=== PATIENT | female | born 1990 | race Caucasian/White ===

== ENCOUNTER 2020-09-02 11:52 | Outpatient (REF) | payer OTHER, MEDICAID, SELFPAY | END 2020-09-02 11:53 | disposition home or self-care (01) | LOC: HO.LAB 11:52 | PROVIDERS: Visit Provider Internal Medicine | DX: Z20.828 Contact with and (suspected) exposure to other viral communicable diseases (principal) | CPT/HCPCS: C9803; U0003 ==

== ENCOUNTER 2020-10-12 10:43 | Emergency (ER) | payer OTHER, SELFPAY ==
[2020-10-12 11:46] VITALS: BP 115/69; PULSE 105; RESP 20; TEMP 37.5; O2SAT 99; BMI 29.2
--- NOTE | 2020-10-12 11:52 | XR_ITS ---
EXAMINATION: XR CHEST CLINICAL INFORMATION: Cough and fever COMPARISON: None TECHNIQUE: Frontal view of the chest was obtained. FINDINGS: No significant abnormality is noted involving the heart, lungs, mediastinum, bony thorax or soft tissues. XR/XR chest 1V IMPRESSION: Unremarkable chest examination.
--- NOTE | 2020-10-12 12:01 | ED.URI ---
HPI - URI/Sore Throat General Chief Complaint: Upper Respiratory Symptoms Stated Complaint: fever Time Seen by Provider: 10/12/20 11:51 Source: patient Mode of arrival: ambulatory History of Present Illness HPI Narrative: 30-year-old female with no significant past medical history presenting to the ED complaining of subjective fever, chills, dry cough, headache, myalgias, generalized fatigue/weakness times a few days. Denies chest pain, shortness of breath, difficulty swallowing, abdominal pain, nausea/vomiting, LE edema, recent travel MD elicited complaint: fever and cough Related Data Previous Rx's Medication Instructions Recorded acetaminophen [Tylenol Extra 500 mg PO Q6H PRN #20 tab 10/12/20 Strength] amoxicillin-pot clavulanate 1 tab PO Q12H 7 Days #14 tab 10/12/20 [Augmentin] fluticasone propionate [Flonase 2 spray INTRANASAL DAILY #16 g 10/12/20 Allergy Relief] Allergies Allergy/AdvReac Type Severity Reaction Status Date / Time No Known Allergies Allergy Verified 10/12/20 11:50 Review of Systems Review of Systems: Constitutional: No Weight loss, +Subj Fever, + Chills ENT/Mouth: No Ear Pain, + Nasal Congestion, No Sinus Pain, No Hoarseness, + sore throat, No Rhinorrhea, No Swallowing Difficulty Cardiovascular: No Chest Pain, No SOB Respiratory: + Cough, No Wheezing Gastrointestinal: No Nausea, No Vomiting, No Diarrhea, No Abdominal pain Genitourinary: No Dysuria, No Hematuria Musculoskeletal: No joint pain, +Myalgias, No Joint Swelling Skin: No Skin Lesions, No rash Neuro: No Weakness, No Numbness, No Paresthesias Yes all other systems are reviewed and are negative [facility] Past Medical History Attestation statement: The following information was validated with the patient. Medical History (Updated 10/12/20 @ 14:02 by PHYLICIA Bryant) No known health problems Social History Social History Advance Directives: No Advance Directives Information Provided: No Physical Exam Vital Signs: Vital Signs: Last Vital Signs Temp 99.5 F 10/12/20 11:46 Pulse 105 H 10/12/20 11:46 Resp 20 10/12/20 11:46 BP 115/69 10/12/20 11:46 Pulse Ox 99 10/12/20 11:46 Body Mass Index 29.2 Const: General: cooperative, healthy appearing and no acute distress Orientation/consciousness: patient oriented x3 Limitations: no limitations HENMT: Head: Yes normal to inspection Ears: hearing grossly normal bilaterally General nose exam: Normal external nose present Face and sinus: Yes normal facial exam Mouth: Normal oral and palatal mucosa present Throat: Yes uvula midline, Yes abnormal tonsil (Erythema and faint exudates), No peritonsillar mass and No uvular edema Eyes: General: appearance normal, both eyes and all related structures EOM: EOMs intact bilaterally Neck: Neck: Yes normal visual inspection, Yes no lymphadenopathy and Yes no meningeal signs Resp: Effort & Inspection: normal respiratory effort Auscultation: clear to auscultation bilaterally, no rales, no rhonchi and no wheezes Cardio: Rate: regular rate Heart sounds: S1 normal heart sound present and S2 normal heart sound present GI: Inspection: Yes normal to inspection Palpation (GI): Soft to palpation, nontender, no guarding and not rigid Skin: Rashes: no rashes Wounds: no wounds Neuro: General: patient oriented x3 and no meningeal signs Gait exam (Neuro): Normal gait present Extrem: Other: No LE edema General: Yes normal to inspection Course Course Course Narrative: CXR, COVID-19/influenza/RSV testing negative. With shared decision making will DC patient with Augmentin for strep pharyngitis MDM - URI/Sore Throat MDM Narrative Medical decision making narrative: 30-year-old female with no significant past medical history presenting to the ED complaining of subjective fever, chills, dry cough, headache, myalgias, generalized fatigue/weakness times a few days. On exam low-grade temp 99.5?, tachycardic likely from fever, NAD/nontoxic, lungs CTA, physical exam concerning for early strep pharyngitis vs Concern for viral syndrome/COVID-19. Rule out pneumonia. Plan: COVID-19/influenza/RSV, CXR, rapid strep Lab Data Labs: Lab Results 10/12/20 Range/Units 12:14 Coronavirus (PCR) NEGATIVE (Negative) Influenza Type A (PCR) NEGATIVE (Negative) Influenza Type B (PCR) NEGATIVE (Negative) RSV RNA Qual (PCR) NEGATIVE (Negative) Discharge Plan Discharge Clinical Impression: Upper respiratory infection, Pharyngitis Patient Disposition: Home, Self-Care Instructions: Viral Syndrome (ED) Additional Instructions: Your COVID-19/influenza/RSV was negative. Her chest x-ray was unremarkable. Flonase will help with nasal decongestion. Augmentin is an antibiotic, take as prescribed for strep pharyngitis. In addition take Tylenol Motrin at home for body aches/fever. Rest. Stay hydrated. Call your doctor for follow-up. You should continue to stay self isolated until you feel better, and consider getting retested if her symptoms persist Hicks COVID-19 / influenza / RSV fue negativo. Hicks radiograf?a de t?rax no tuvo nada especial. Flonase ayudar? con la descongesti?n nasal. Augmentin es un antibi?nadeem, kary seg?n lo prescrito para la faringitis estreptoc?cica. Adem?s, tome Tylenol Motrin en casa para los unique corporales / fiebre. [place]. Mantente hidratado. Llame a hicks m?dico para seguimiento. Debe continuar aislado hasta que se sienta mejor y considerar volver a hacerse la prueba si los s?ntomas persisten. Prescriptions: New amoxicillin-pot clavulanate [Augmentin] 875-125 mg tablet 1 tab PO Q12H 7 Days Qty: 14 RF: 0 acetaminophen [Tylenol Extra Strength] 500 mg tablet 500 mg PO Q6H PRN (Reason: pain or fever) Qty: 20 RF: 0 fluticasone propionate [Flonase Allergy Relief] 50 mcg/actuation spray,suspension 2 spray intranasal DAILY Qty: 16 RF: 0 Referrals: Physician,Unknown [Primary Care Provider] - 2 days Stand Alone Forms: Work/School Release
[2020-10-12] MEDS: Acetaminophen 325 MG TABLET 650 MG PO (12:21)
[2020-10-12 13:25] LABS: Influenza A PCR NEGATIVE (Negative); Influenza B PCR NEGATIVE (Negative); Resp Syncy Virus RNA Qual PCR NEGATIVE (Negative); SARS COV2 PCR INHOUSE NEGATIVE (Negative)
== END 2020-10-12 14:14 | disposition home or self-care (01) ==
PROVIDERS: Physician Assistant; Emergency Provider Emergency Medicine
DX: J06.9 Acute upper respiratory infection, unspecified (principal); J02.9 Acute pharyngitis, unspecified; Z20.822 Contact with and (suspected) exposure to COVID-19
CPT/HCPCS: 0241U; 36415; 71045; 99283

== ENCOUNTER 2021-09-13 15:37 | Inpatient (IN) | payer OTHER, SELFPAY ==
--- NOTE | ~2021-09-13 | US_ITS ---
EXAMINATION: US PELVIS CLINICAL INFORMATION: Right lower quadrant pain. Abdominal plasty 4 months ago. Age 31. LMP 09/07/2021. COMPARISON: CT abdomen and pelvis with contrast 09/14/2021. TECHNIQUE: Ultrasound of the pelvis is performed using both transabdominal and transvaginal transducers along with Doppler. Transvaginal imaging is performed due to inadequate visualization transabdominally. FINDINGS: Uterus: The uterus is anteverted and measures 8.5 x 4.1 x 5.4 cm. The double wall endometrial thickness is normal at 4 mm. The uterus is smooth in contour and has normal myometrial echogenicity. No myometrial cyst. There is question of exophytic fibroid from anterior right fundus approximately 4 x 3 x 2 cm in size. There is a knuckle of bowel at this site on CT. However, no peristalsis is demonstrated to confirm bowel on ultrasound. Adnexa: Both ovaries are visualized. There is normal color flow to the adnexa. There is no ovarian torsion. There is no pelvic ascites or fluid collection. Right ovary measures 4.4 x 2.6 x 2.8 cm. Volume 17 mL. Left ovary measures 4.0 x 2.4 x 3.3 cm. Volume 17 mL. Other: There is a complicated spindle-shaped predominantly cystic lesion overlying the midline anterior abdominal wall in the deep subcutaneous space corresponding to the cystic area on CT. This measures approximately 1.3 cm in thickness by 5.6 x 6.3 cm. There is no associated color flow. Finding most likely represents postoperative seroma. US/US pelvic and transvaginal IMPRESSION: 1. No adnexal mass or ascites. No torsion. 2. Question of right uterine fundal exophytic fibroid 4 x 3 x 2 cm versus artifact from adjacent bowel (no peristalsis seen on ultrasound). 3. Probable complicated seroma the subcutaneous space midline measuring 1.3 x 5.6 x 6.3 cm. No associated color flow.
--- NOTE | ~2021-09-13 | CT_ITS ---
EXAMINATION: CT ABDOMEN AND PELVIS WITH CONTRAST CLINICAL INFORMATION: Right lower quadrant pain COMPARISON: None TECHNIQUE: Multidetector volumetric images were obtained from the superior aspect of the liver through the pubic symphysis following administration 85 mL of Omnipaque 350 intravenous contrast. Sagittal and coronal reformatted images were obtained on the technologist's workstation. Oral contrast: No This CT examination was performed using dose optimization techniques as appropriate, variously including the following: *Automated exposure control *Adjustment of mA and/or kV according to patient size (this includes techniques or standardized protocols for targeted exams where dose is matched to indication/reason for exam; i.e. extremities or head) *Use of iterative reconstruction technique DLP: 548 mGy-cm FINDINGS: LUNG BASES: The visualized lung bases are unremarkable. Bilateral breast implants are noted. LIVER, GALLBLADDER, AND BILIARY TREE: The liver is normal in size, shape, and attenuation. No focal hepatic lesion or biliary ductal dilatation is present. The gallbladder is unremarkable with no evidence of radiopaque gallstones, gallbladder wall thickening, or obvious pericholecystic inflammatory changes. PANCREAS: Unremarkable. SPLEEN: Unremarkable. ADRENAL GLANDS: Unremarkable. KIDNEYS AND URETERS: The kidneys are normal in size, shape, and attenuation. No hydronephrosis, hydroureter, or calculi seen. No perinephric stranding. BLADDER: Unremarkable. GASTROINTESTINAL TRACT: No evidence of bowel obstruction or significant wall thickening. The appendix is unremarkable. No free fluid or free air is seen. ABDOMINAL WALL: There is a mildly complex fluid collection in the subcutaneous tissues of the lower anterior abdominal wall along the midline measuring 3.3 x 1.0 x 3.5 cm with peripheral enhancement. LYMPH NODES: Normal. VASCULAR: Unremarkable. PELVIC VISCERA: Unremarkable. OSSEOUS STRUCTURES: Unremarkable. CT/CT abdomen pelvis w con IMPRESSION: Peripherally enhancing collection in the lower anterior abdominal wall subcutaneous tissues measuring up to 3.5 cm, which could represent an abscess in the proper clinical setting. No additional acute findings identified within the abdomen/pelvis. Fleischner guidelines were followed.
[2021-09-13 16:04] VITALS: BP 109/68; PULSE 103; RESP 16; TEMP 37.3; O2SAT 99; BMI 26.5
[2021-09-13 23:04] VITALS: BP 118/80; PULSE 95; RESP 18; TEMP 36.9; O2SAT 100
--- NOTE | 2021-09-13 23:12 | ED.ABDPAIN ---
HPI - Abdominal Pain General Chief Complaint: Abdominal Pain Stated Complaint: abd pain Time Seen by Provider: 09/13/21 23:03 Source: patient and slumber room attendant Mode of arrival: ambulatory History of Present Illness HPI narrative: 31-year-old female without significant past medical history other than a recent abdominal plasty 4 months ago that was completed in [place]. Patient now presents with right lower quadrant pain that started last night and has worsened in nature and is described as sharp and extends across into the suprapubic area with associated subjective fevers and chills but denies any nausea, vomiting, diarrhea and denies any urinary pain/burning/frequency. Patient states LMP was 09/05. Related Data Previous Rx's Medication Instructions Recorded acetaminophen 500 mg tablet 500 mg PO Q6H PRN #20 tab 10/12/20 (Tylenol Extra Strength) amoxicillin 875 mg-potassium 1 tab PO Q12H 7 Days #14 tab 10/12/20 clavulanate 125 mg tablet (Augmentin) fluticasone propionate 50 2 spray INTRANASAL DAILY #16 g 10/12/20 mcg/actuation nasal spray,suspension (Flonase Allergy Relief) Allergies Allergy/AdvReac Type Severity Reaction Status Date / Time No Known Allergies Allergy Verified 10/12/20 11:50 Review of Systems Review of Systems Pertinent positives and negatives as stated in HPI 10 point review of systems is otherwise negative. Physical Exam Vital Signs: Vital Signs: Last Vital Signs Temp 98.5 F 09/13/21 23:04 Pulse 80 09/13/21 23:56 Resp 16 09/14/21 06:19 BP 110/68 09/13/21 23:56 Pulse Ox 100 09/13/21 23:56 BMI result Body Mass Index 26.5 VITAL SIGNS: Reviewed. GENERAL: Well developed, well nourished, in no acute distress. HEAD: Normocephalic/atraumatic EYES: PERRLA, EOMI OROPHARYNX: no oral lesions noted, posterior pharynx clear LUNGS: Normal breath sounds. No adventitious sounds or accessory muscle use. SpO2<100> CARDIOVASCULAR: Regular rate and rhythm without noted murmurs ABDOMEN: Soft, right lower quadrant pain, McBurney's positive, Rovsing's negative, non-distended with bowel sounds. NEUROLOGIC: Alert and oriented x 4. Course Course Course Narrative: 31-year-old female with history and clinical presentation suggestive of ectopic, ovarian torsion, but most likely appendicitis or renal colic. Review of all investigations is significant for abdominal wall abscess that is measuring 3.5 cm. Patient received antibiotics as well as pain medication and the case was discussed with Dr. Delatorre who will see the patient in the morning. MDM - Abdominal Pain Lab Data Result diagrams: 09/13/21 23:46 09/13/21 23:46 Labs: Lab Results 09/13/21 09/13/21 09/13/21 Range/Units 23:37 23:37 23:37 WBC (4.8-10.8) X10*3/uL RBC (4.20-5.50) X10*6/uL Hgb (12.0-16.0) g/dl Hct (37.0-47.0) % MCV (80.0-98.0) fL MCH (27.0-33.0) pg MCHC (31.0-35.0) g/dl RDW (11.0-16.0) % Plt Count (160-400) X10*3/uL MPV (9.4-12.3) fL Immature Gran % (Auto) (0.0-0.4) % Neut % (Auto) (45-73) % Lymph % (Auto) (20-40) % Fleming % (Auto) (2-11) % Eos % (Auto) (0-4) % Baso % (Auto) (0-2) % Lymph # (Auto) (1.2-4.9) X10*3/uL Fleming # (Auto) (0.1-1.2) X10*3/uL Eos # (Auto) (0.0-0.4) X10*3/uL Baso # (Auto) (0.0-0.2) X10*3/uL Abs Immat Gran (auto) (0.00-0.03) X10*3/uL Absolute Neuts (auto) (2.0-8.3) x10*3/uL Absolute Nucleated RBC (0.0-0.012) X10*3/uL Nucleated RBC % (auto) (0.0-0.2) /100WBC Sodium (135-145) mmol/L Potassium (3.3-5.1) mmol/L Chloride (96-108) mmol/L Carbon Dioxide (22-29) mmol/L Anion Gap (12-20) BUN (9-16) mg/dL Creatinine (0.5-1.4) mg/dL Estim Creat Clear Calc Estimated GFR Random Glucose (60-115) mg/dL Lactic Acid (0.5-2.0) mmol/L Calcium (8.4-10.2) mg/dL Total Bilirubin (0.0-1.0) mg/dL AST (5-31) U/L ALT (0-31) U/L Alkaline Phosphatase (39-117) U/L Total Protein (6.5-8.0) g/dL Albumin (3.5-5.0) g/dL Urine Color STRAW Urine Appearance HAZY Urine pH 6.0 (5.0-8.0) Ur Specific [place] <= 1.005 (1.005-1.025) Urine Protein NEG (NEG-TRACE) MG/DL Urine Glucose (UA) NEG (NEG) MG/DL Urine Ketones NEG (NEG) MG/DL Urine Blood NEG (NEG) Urine Nitrite NEG (NEG) Ur Leukocyte Esterase 1+ H (NEG) Urine RBC 0 (0) /HPF Urine WBC 1-4 (0-4) /HPF Ur Squamous Epith Cells 1+ /LPF Ur Renal Epithelial Cell 1+ /LPF Urine Bacteria 3+ /LPF Urine Mucus TRACE /LPF Urine Test NEGATIVE (NEGATIVE) COVID-19 (ALETHEA) Negative (Negative) COVID-19 Clin Com See Note 09/13/21 09/13/21 09/13/21 Range/Units 23:46 23:46 23:46 WBC 15.2 H (4.8-10.8) X10*3/uL RBC 4.72 (4.20-5.50) X10*6/uL Hgb 12.5 (12.0-16.0) g/dl Hct 38.2 (37.0-47.0) % MCV 80.9 (80.0-98.0) fL MCH 26.5 L (27.0-33.0) pg MCHC 32.7 (31.0-35.0) g/dl RDW 14.0 (11.0-16.0) % Plt Count 292 (160-400) X10*3/uL MPV 11.3 (9.4-12.3) fL Immature Gran % (Auto) 0.4 (0.0-0.4) % Neut % (Auto) 65.2 (45-73) % Lymph % (Auto) 24.3 (20-40) % Fleming % (Auto) 7.4 (2-11) % Eos % (Auto) 2.4 (0-4) % Baso % (Auto) 0.3 (0-2) % Lymph # (Auto) 3.7 (1.2-4.9) X10*3/uL Fleming # (Auto) 1.1 (0.1-1.2) X10*3/uL Eos # (Auto) 0.4 (0.0-0.4) X10*3/uL Baso # (Auto) 0.1 (0.0-0.2) X10*3/uL Abs Immat Gran (auto) 0.06 H (0.00-0.03) X10*3/uL Absolute Neuts (auto) 9.9 H (2.0-8.3) x10*3/uL Absolute Nucleated RBC 0.000 (0.0-0.012) X10*3/uL Nucleated RBC % (auto) 0.0 (0.0-0.2) /100WBC Sodium 139 (135-145) mmol/L Potassium 3.8 (3.3-5.1) mmol/L Chloride 104 (96-108) mmol/L Carbon Dioxide 28 (22-29) mmol/L Anion Gap 11 L (12-20) BUN 11 (9-16) mg/dL Creatinine 0.73 (0.5-1.4) mg/dL Estim Creat Clear Calc 99.3 Estimated GFR > 60 Random Glucose 101 (60-115) mg/dL Lactic Acid 0.8 (0.5-2.0) mmol/L Calcium 9.6 (8.4-10.2) mg/dL Total Bilirubin 0.7 (0.0-1.0) mg/dL AST 15 (5-31) U/L ALT 23 (0-31) U/L Alkaline Phosphatase 76 (39-117) U/L Total Protein 7.4 (6.5-8.0) g/dL Albumin 4.2 (3.5-5.0) g/dL Urine Color Urine Appearance Urine pH (5.0-8.0) Ur Specific [place] (1.005-1.025) Urine Protein (NEG-TRACE) MG/DL Urine Glucose (UA) (NEG) MG/DL Urine Ketones (NEG) MG/DL Urine Blood (NEG) Urine Nitrite (NEG) Ur Leukocyte Esterase (NEG) Urine RBC (0) /HPF Urine WBC (0-4) /HPF Ur Squamous Epith Cells /LPF Ur Renal Epithelial Cell /LPF Urine Bacteria /LPF Urine Mucus /LPF Urine Test (NEGATIVE) COVID-19 (ALETHEA) (Negative) COVID-19 Clin Com Discharge Plan Discharge Clinical Impression: Abdominal wall abscess Instructions: Abscess (ED), Abscess Incision and Drainage (DC) Prescriptions: No Action amoxicillin-pot clavulanate [Augmentin] 875-125 mg tablet 1 tab PO Q12H 7 Days Qty: 14 RF: 0 acetaminophen [Tylenol Extra Strength] 500 mg tablet 500 mg PO Q6H PRN (Reason: pain or fever) Qty: 20 RF: 0 fluticasone propionate [Flonase Allergy Relief] 50 mcg/actuation spray,suspension 2 spray intranasal DAILY Qty: 16 RF: 0 PMFSH Past Medical History Source: nursing notes reviewed Medical History No known health problems Social History Social History Advance Directives: No Advance Directives Information Provided: Yes Patient : No
[2021-09-13 23:55] LABS: MANUAL DIFF FLAG NO
[2021-09-13 23:56] VITALS: BP 110/68; PULSE 80; RESP 16; O2SAT 100
[2021-09-13 23:56] LABS: Basophils Absolute Auto 0.1 X10*3/uL (0.0-0.2); Basophils Percent Auto 0.3 % (0-2); Eosinophils Absolute Auto 0.4 X10*3/uL (0.0-0.4); Eosinophils Percent Auto 2.4 % (0-4); Hematocrit 38.2 % (37.0-47.0); Hemoglobin 12.5 g/dl (12.0-16.0); Imm Gran Abs Auto 0.06 X10*3/uL (0.00-0.03); Imm Gran Pct Auto 0.4 % (0.0-0.4); Lymphocytes Absolute Auto 3.7 X10*3/uL (1.2-4.9); Lymphocytes Percent Auto 24.3 % (20-40); Mean Corpuscular HGB Conc 32.7 g/dl (31.0-35.0); Mean Corpuscular Hemoglobin 26.5 pg (27.0-33.0); Mean Corpuscular Volume 80.9 fL (80.0-98.0); Mean Platelet Volume 11.3 fL (9.4-12.3); Monocytes Absolute Auto 1.1 X10*3/uL (0.1-1.2); Monocytes Percent Auto 7.4 % (2-11); Neutrophils Absolute Auto 9.9 x10*3/uL (2.0-8.3); Neutrophils Percent Auto 65.2 % (45-73); Platelet Count 292 X10*3/uL (160-400); Red Blood Count 4.72 X10*6/uL (4.20-5.50); White Blood Count 15.2 X10*3/uL (4.8-10.8)
[2021-09-13 23:58] LABS: Appearance Urine HAZY; Color Urine STRAW; Glucose Urine UA NEG (NEG); Leukocyte Esterase Urine 1+ (NEG); Nitrite Urine NEG (NEG); Specific Gravity - Urine <= 1.005 (1.005-1.025); UACC Culture Trigger YES; Urine Blood NEG (NEG); Urine Ketones NEG (NEG); Urine Protein NEG (NEG-TRACE)
[2021-09-14 00:01] LABS: UPreg QC Valid YES; Urine Pregnancy NEGATIVE (NEGATIVE)
[2021-09-14 00:15] LABS: Bacteria Urine 3+ /LPF; Mucus Urine TRACE /LPF; RBC Urine 0 /HPF (0); Renal Epithelial Cells Urine 1+ /LPF; Squamous Epithelial Cell Urine 1+ /LPF
[2021-09-14 00:17] LABS: COVID-19 Test Negative (Negative)
[2021-09-14 00:31] LABS: Lactic Acid 0.8 mmol/L (0.5-2.0)
[2021-09-14 00:32] LABS: Alanine Aminotransferase 23 U/L (0-31); Albumin Level 4.2 g/dL (3.5-5.0); Alkaline Phosphatase 76 U/L (39-117); Anion Gap 11 (12-20); Aspartate Amino Transferase 15 U/L (5-31); Bilirubin Total 0.7 mg/dL (0.0-1.0); Blood Urea Nitrogen 11 mg/dL (9-16); Calcium 9.6 mg/dL (8.4-10.2); Carbon Dioxide 28 mmol/L (22-29); Chloride 104 mmol/L (96-108); Creatinine Clr Calc Pharmacy 99.3; Estimated Glomerular Filt Rate > 60; Glucose Random 101 mg/dL (60-115); Potassium 3.8 mmol/L (3.3-5.1); Sodium 139 mmol/L (135-145); Total Protein 7.4 g/dL (6.5-8.0)
[2021-09-14] MEDS: Ketorolac Tromethamine 30 MG/ML VIAL 15 MG IVPUSH (00:43)
[2021-09-14] MEDS: Piperacillin Sodium/Tazobactam 3.375 GM in 0.9 % Sodium Chloride 50 ML IV ×4 (00:43→22:45)
[2021-09-14] MEDS: iohexoL 350 MG/ML 100 ML INFUS..BTL 85 ML IV (01:28)
[2021-09-14 06:19] VITALS: RESP 16
[2021-09-14 09:47] VITALS: BP 95/60; PULSE 71; RESP 12; TEMP 36.7; O2SAT 99
--- NOTE | 2021-09-14 10:21 | PM.HPGS ---
History of Present Illness History of Present Illness Date of Service: 09/14/21 Chief complaint: abd pain Narrative: Julianna Bell is a 31 year old female who came to the emergency room because of right lower quadrant pain. She said this started sometime about a.m. in the morning of 09/13/2021. She had this has been constant. She denies any GI complaints. Shedenies any nausea or vomiting. She denies any fever. She denies significant urinary complaints. She did have an abdominoplasty done in [facility] in April 2021. Her CAT scan had shown a small fluid collection in the subcutaneous layer to the left of the midline in the lower abdomen. This however away from here pain and tenderness. She continues to have pain and tenderness in the emergency room. Review of Systems Constitutional: Constitutional: Denies chills and Denies fever(s) Cardiovascular: Cardiovascular: Denies chest pain, Denies dyspnea and Denies dyspnea on exertion Respiratory: Respiratory: Denies cough, Denies dyspnea and Denies dyspnea on exertion Gastrointestinal: Gastrointestinal: Denies hematochezia and Denies change in bowel habits Genitourinary: Genitourinary: Denies hematuria Musculoskeletal: Musculoskeletal: Denies back pain and Denies limited range of motion Neurologic: Denies focal weakness and Denies convulsions Psychiatric: Psychiatric: Denies depression and Denies mood swings PMFSH Past Medical History Medical History (Updated 09/14/21 @ 10:19 by Aditya Delatorre MD) No known health problems Right lower quadrant pain Surgical History Surgical History (Updated 09/14/21 @ 10:19 by Aditya Delatorre MD) H/O abdominoplasty History of breast augmentation Social History Social History Advance Directives: No Advance Directives Information Provided: Yes Patient : No Meds Allergies Allergy/AdvReac Type Severity Reaction Status Date / Time No Known Allergies Allergy Verified 10/12/20 11:50 Physical Exam Vital Signs: Vital Signs: Last Vital Signs Temp 98.1 F 09/14/21 09:47 Pulse 71 09/14/21 09:47 Resp 12 09/14/21 09:47 BP 95/60 09/14/21 09:47 Pulse Ox 99 09/14/21 09:47 BMI result Body Mass Index 26.5 Const: General: comfortable and no acute distress Orientation/consciousness: patient oriented x3 Neck: Neck: Yes no lymphadenopathy Resp: Auscultation: clear to auscultation bilaterally Cardio: Rhythm: regular rhythm GI: Other: Significantly Tender in the right lower quadrant, no guarding or rebound Palpation (GI): Soft to palpation, nontender and no guarding Neuro: General: patient oriented x3 Results Results Labs: Short CBC 09/13/21 Range/Units 23:46 WBC 15.2 H (4.8-10.8) X10*3/uL Hgb 12.5 (12.0-16.0) g/dl Hct 38.2 (37.0-47.0) % Plt Count 292 (160-400) X10*3/uL BMP 09/13/21 23:46 Sodium 139 Potassium 3.8 Chloride 104 Carbon Dioxide 28 BUN 11 Creatinine 0.73 Calcium 9.6 Liver Function 09/13/21 Range/Units 23:46 Total Bilirubin 0.7 (0.0-1.0) mg/dL AST 15 (5-31) U/L ALT 23 (0-31) U/L Alkaline Phosphatase 76 (39-117) U/L Albumin 4.2 (3.5-5.0) g/dL Urine 09/13/21 09/13/21 Range/Units 23:37 23:37 Urine Color STRAW Urine Appearance HAZY Urine pH 6.0 (5.0-8.0) Ur Specific [place] <= 1.005 (1.005-1.025) Urine Protein NEG (NEG-TRACE) MG/DL Urine Glucose (UA) NEG (NEG) MG/DL Urine Test NEGATIVE (NEGATIVE) Abdomen CT scan report/results: report reviewed and image reviewed CT scan - pelvis: report reviewed and image reviewed Assessment and Plan (1) Right lower quadrant pain: Status: Acute She has had right lower quadrant pain and tenderness since yesterday morning. She is significantly tender still at this time. She had leukocytosis. I have reviewed her CAT scan and this shows a fluid collection in the abdominal wall at the subcutaneous layer to the left of the midline below the umbilicus. This is likely an ache and may be related to her history of abdominoplasty 4 months ago. This does not appear to be related to her right lower quadrant pain. I do not see any inflammatory changes in the right lower quadrant that may suggest appendicitis. Does have leukocytosis so I am going to admit her the hospital and start her on empiric antibiotic treatment. Furthermore, I am on going to order for an ultrasound of the pelvis to rule out an adnexal pathology. She understands the plan. Quality Stroke Does the patient have a stroke diagnosis?: No VTE Prior VTE?: No VTE Risk Level:: Surgical - low VTE Device Contraindication: Treatment Not Indicated VTE Drug Contraindication: Treatment Not Indicated Procedures Date of Service Date of Service: 09/14/21
--- NOTE | 2021-09-14 10:26 | PC.NURSE ---
CONSULT WITH DR CUNNINGHAM, AWAITING DISPOSITION
[2021-09-14] MEDS: Lactated Ringers 1,000 ML 100 ML IVCONT ×2 (10:41→21:31)
--- NOTE | 2021-09-14 11:09 | PHA.MEDREC ---
Pharmacy Consult ? Medication Reconciliation Pharmacy has completed the medication reconciliation. Patient only takes OTC medications. Fanta Valadez, AureaD
[2021-09-14 13:44] VITALS: BP 112/61; PULSE 75; RESP 18; TEMP 36.6; O2SAT 100
--- NOTE | 2021-09-14 15:36 | PM.EVENT ---
Event Note Date of Service: 09/14/21 Event Note: Patient feels ?okay A little tender in right lower quadrant No rebound or guarding No fever I have reviewed her CAT scan with the radiologist Dr. Gupta - no appendicitis but Large cyst on the right ovary seen Pain may be secondary to her ovarian cyst Ultrasound still pending Will start on clear liquids and advance as tolerated
[2021-09-14 15:46] VITALS: BP 103/54; PULSE 66; RESP 16; TEMP 37; O2SAT 100
[2021-09-14] MEDS: 0.9 % Sodium Chloride Flush 3 ML SYRINGE IVFLUSH ×2 (17:23→23:26)
[2021-09-14 19:55] VITALS: BP 105/57; PULSE 87; RESP 15; TEMP 36.9; O2SAT 100
[2021-09-15] VITALS: BP 100/50; PULSE 82; RESP 17; TEMP 36.6; O2SAT 99
[2021-09-15 04:00] VITALS: BP 110/58; PULSE 80; RESP 17; TEMP 36.4; O2SAT 99
[2021-09-15] MEDS: Piperacillin Sodium/Tazobactam 3.375 GM in 0.9 % Sodium Chloride 50 ML IV ×2 (05:08→12:16)
[2021-09-15 06:00] LABS: Hematocrit 35.5 % (37.0-47.0); Hemoglobin 11.3 g/dl (12.0-16.0); Mean Corpuscular HGB Conc 31.8 g/dl (31.0-35.0); Mean Corpuscular Hemoglobin 26.4 pg (27.0-33.0); Mean Corpuscular Volume 82.9 fL (80.0-98.0); Mean Platelet Volume 11.7 fL (9.4-12.3); Platelet Count 231 X10*3/uL (160-400); Red Blood Count 4.28 X10*6/uL (4.20-5.50); Red Cell Distribution Width 13.8 % (11.0-16.0); White Blood Count 9.6 X10*3/uL (4.8-10.8)
[2021-09-15 07:22] VITALS: BP 107/64; PULSE 79; RESP 18; TEMP 36.5; O2SAT 99
[2021-09-15] MEDS: Lactated Ringers 1,000 ML 100 ML IVCONT (09:25)
--- NOTE | 2021-09-15 10:46 | P.PNGS_ITS ---
Subjective Subjective Date of Service: 09/15/21 Interval history: Says she feels much better this morning Much less pain Denies dysuria Nausea or vomiting Physical Exam Vital Signs: Vital Signs: Last Vital Signs Temp 97.7 F 09/15/21 07:22 Pulse 79 09/15/21 07:22 Resp 18 09/15/21 07:22 BP 107/64 09/15/21 07:22 Pulse Ox 99 09/15/21 07:22 BMI result Body Mass Index 26.5 Const: General: comfortable and no acute distress Orientation/consciousness: patient oriented x3 Neck: Neck: Yes no lymphadenopathy Resp: Auscultation: clear to auscultation bilaterally Cardio: Rhythm: regular rhythm GI: Other: No significant tenderness on right lower quadrant, not tender on area of fluid collection in the midline to the left Palpation (GI): Soft to palpation, nontender and no guarding Neuro: General: patient oriented x3 Objective Data Active Medications Lactated Ringer's (Lr) 1,000 mls @ 100 mls/hr IVCONT .Q10H [facility] Last Admin: 09/15/21 09:25 Dose: 100 mls/hr Documented by: CHADWICK Piperacillin Sod/Tazobactam (Sod 3.375 gm/ Sodium Chloride) 50 mls @ 100 mls/hr IV Q6H [facility] Last Infusion: 09/15/21 05:41 Dose: 0 mls/hr Documented by: FREDDIE Morphine Sulfate (Morphine Sulfate 2 Mg/Ml Cartridge) 1 mg IVPUSH Q3H PRN; Protocol PRN Reason: pain, severe Oxycodone HCl (Oxycodone Hcl Immed Release 5 Mg Tablet) 5 mg PO Q4H PRN PRN Reason: Pain, Moderate (Pain Scale 4-6 Sodium Chloride (0.9 % Sodium Chloride Flush 3 Ml Syringe) 3 ml IVFLUSH QSHIFT [facility] Last Admin: 09/15/21 07:33 Dose: Not Given Documented by: FREDDIE Non-Admin Reason: IV Running Labs CBC & Chem 7: 09/15/21 05:12 09/13/21 23:46 Labs: Laboratory Results - last 24 hr 09/15/21 05:12 MCV 82.9 MCH 26.4 L MCHC 31.8 RDW 13.8 Plt Count 231 MPV 11.7 Absolute Nucleated RBC 0.000 Nucleated RBC % (auto) 0.0 Microbiology Microbiology Results: Microbiology 09/13/21 23:57 Blood Culture - Preliminary Blood - Venous No growth after 24 hours. 09/13/21 23:46 Blood Culture - Preliminary Blood - Venous No growth after 24 hours. Procedures Date of Service Date of Service: 09/15/21 Progress Note: A&P Assessment and plan (1) Right lower quadrant pain: Status: Acute Assessment and Plan: CT reviewed with radiologist - no intra-abdominal pathology at this time seen Ultrasound does not reveal significant findings Question of ovarian cyst on CT scan She feels much better this morning No leukocytosis Diet as tolerated Will treat for UTI - leukocyte esterase positive urine No need to separate collection in the subcutaneous layer the abdominal wall - this is not tender and is likely to be chronic seroma from previous abdominoplasty Okay to follow-up in the office (2) H/O abdominoplasty: Status: Acute Fall Risk Details Current Medications: Current Medications Lactated Ringer's (Lr) 1,000 mls @ 100 mls/hr IVCONT .Q10H [facility] Last Admin: 09/15/21 09:25 Dose: 100 mls/hr Documented by: Piperacillin Sod/Tazobactam (Sod 3.375 gm/ Sodium Chloride) 50 mls @ 100 mls/hr IV Q6H [facility] Last Infusion: 09/15/21 05:41 Dose: Infused Documented by: Morphine Sulfate (Morphine Sulfate 2 Mg/Ml Cartridge) 1 mg IVPUSH Q3H PRN; Protocol PRN Reason: pain, severe Oxycodone HCl (Oxycodone Hcl Immed Release 5 Mg Tablet) 5 mg PO Q4H PRN PRN Reason: Pain, Moderate (Pain Scale 4-6 Sodium Chloride (0.9 % Sodium Chloride Flush 3 Ml Syringe) 3 ml IVFLUSH QSHIFT [facility] Last Admin: 09/15/21 07:33 Dose: Not Given Documented by: Time Spent With Patient Time: Total time spent is greater than 50% in coordination of care (as documented) at patient's floor/unit and/or counseling patient: Time with patient: 15 - 24 minutes Quality Stroke Does the patient have a stroke diagnosis?: No VTE Prior VTE?: No VTE Risk Level:: Surgical - low VTE Device Contraindication: Treatment Not Indicated VTE Drug Contraindication: Treatment Not Indicated
[2021-09-15 11:52] VITALS: BP 95/54; PULSE 69; RESP 18; TEMP 36.4; O2SAT 99
--- NOTE | 2021-09-15 12:34 | PM.DS ---
DS: Providers Provider Date of Service: 09/15/21 Date of admission: 09/14/21 10:22 Date of discharge: 09/15/21 Primary care physician: Unknown Physician Attending physician on admission: Aditya Delatorre DS: Diagnosis Discharge Diagnosis (1) Right lower quadrant pain: Status: Acute (2) H/O abdominoplasty: Status: Acute (3) UTI (urinary tract infection): Status: Acute DS: Summary Hospital Course Hospital Course: BRIEF HPI: Julianna Bell is a 31 year old female who came to the emergency room because of right lower quadrant pain.? She said this started sometime about a.m. in the morning of 09/13/2021.? She had this has been constant.? She denies any GI complaints.? She denies any nausea or vomiting.? She denies any fever.? She denies significant urinary complaints. She did have an abdominoplasty done in [facility] in April 2021.? Her CAT scan demonstrated a small fluid collection in the subcutaneous layer to the left of the midline in the lower abdomen.? This however away from here pain and tenderness. She also had a leukocytosis. HOSPITAL COURSE: Given her leukocytosis and she remained significantly tender, she was admitted to the hospital and started on empiric antibiotic treatment. There were no inflammatory changes in the right lower quadrant to suggest appendicitis. And the fluid collection in the subq was likely chronic and probably unrelated to her right lower quadrant pain. An ultrasound of the pelvis was ordered to rule out any adnexal pathology. She was kept on clear liquids, IVF and PRN analgesics. UA came back positive for leukocyte esterase. The following morning she felt very much improved with little residual pain and tenderness. CT was reviewed with radiologist - no intra-abdominal pathology at this time seen and ultrasound did not reveal any significant findings. Her leukocytosis also resolved. Her pain may have been related to her UTI. She was started on a solid diet. She was reassessed later in the day and was tolerating the diet and felt well and ready for discharge. No surgical intervention warranted for the subq fluid collection as the area was not tender and was likely to be chronic seroma from previous abdominoplasty. She was discharged to home on 09/15/21 on a PO course of ciprofloxacin for treatment of her UTI. She is to follow up with her PCP and Dr. Delatorre in the office. Status at Discharge Functional status at discharge: independent ambulation Time Spent with Patient Time attestation: Total time spent providing and/or coordinating discharge services: Discharge coordination time: Less than 30 minutes Quality: Stroke Does the patient have a stroke diagnosis?: No Physical Exam Vital Signs: Vital Signs: Last Vital Signs Temp 97.6 F 09/15/21 11:52 Pulse 69 09/15/21 11:52 Resp 18 09/15/21 11:52 BP 95/54 L 09/15/21 11:52 Pulse Ox 99 09/15/21 11:52 BMI result Body Mass Index 26.5 Const: General: comfortable, no acute distress and alert Orientation/consciousness: patient oriented x3 Resp: Effort & Inspection: normal respiratory effort GI: Inspection: No distended Palpation (GI): Soft to palpation, nontender and no guarding Skin: General skin exam: no rashes or lesions noted Neuro: General: patient oriented x3 Extrem: General: Yes no clubbing, cyanosis or edema DS: Data Data Completed and Pending Labs on day of discharge: Laboratory Results - last 24 hr 09/15/21 05:12 WBC 9.6 RBC 4.28 Hgb 11.3 L Hct 35.5 L MCV 82.9 MCH 26.4 L MCHC 31.8 RDW 13.8 Plt Count 231 MPV 11.7 Absolute Nucleated RBC 0.000 Nucleated RBC % (auto) 0.0 Preliminary micro results at discharge 09/13/21 Unknown Urine Culture - Preliminary Urine clean catch - Clean Catch Midstream Gram negative siobhan 09/13/21 23:57 Blood Culture - Preliminary Blood - Venous No growth after 24 hours. 09/13/21 23:46 Blood Culture - Preliminary Blood - Venous No growth after 24 hours. Discharge Plan Discharge Patient Disposition: Home, Self-Care Discharge Diagnosis: RLQ abdominal pain, UTI Referrals: Aditya Delatorre MD [Physician] - 2 Weeks Physician,Unknown J [Primary Care Provider] - 1 Week Discharge Medications: New ciprofloxacin HCl 250 mg tablet 250 mg PO Q12H 3 Days Qty: 6 RF: 0 Continued acetaminophen 325 mg Tablet 650 mg PO Q4H PRN (Reason: Pain) RF: 0 ascorbic acid (vitamin C) [Vitamin C] 500 mg Tablet 500 mg PO DAILY RF: 0 ibuprofen [Advil] 200 mg Tablet 400 mg PO Q6H PRN (Reason: Pain) RF: 0 Discharge Orders: Discharge Order (Routine); Ordered 09/15/21 Ordered By: Vee Candelario Diet: advance to usual diet Activity on Discharge: As tolerated Stand Alone Forms: Patient Portal Discharge page Activity Restrictions/Additional Instructions: Follow up with your Primary care doctor. Call PCP or return to ED with new or worsening symptoms. Complete antibiotics prescribed. Care Plan Goals: Resolution of pain Health Concerns: H/o abdominoplasty, UTI, RLQ pain Plan of Treatment: PO abx for UTI PCP follow up Assessment: Improved Patient Instructions: Urinary Tract Infection in Women (ED)
--- NOTE | 2021-09-15 14:05 | PM.EVENT ---
Event Note Date of Service: 09/15/21 Event Note: Seen on afternoon rounds says she continues to feel comfortable denies significant pain tolerating diet abdomen soft and benign no fever she wants to go home she was given prescriptions by the ER for a UTI as well she can follow-up in the office
--- NOTE | 2021-09-15 16:26 | MHC.CM.PN ---
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 WILL NEED A RETURN TO WORK NOTE EDUCATED ABOUT THE IMPORTSNCE OF HAVING A HCP AND CONFIRMED PCP AT [facility] ' DISCHARGE HOME NO SERVICES TRANSPORTATION FAMILY TO PROVIDE
== END 2021-09-15 15:38 | disposition home or self-care (01) | DRG 463 ==
LOC: HO.ED 09-14 07:25 → HO.EDOVER 09-14 11:19 → HO.S3 09-14 12:02
PROVIDERS: Student in an Organized Health Care Education/Training Program; Admitting Provider Surgery; Emergency Provider Emergency Medicine; Visit Provider Surgery
DX: N39.0 Urinary tract infection, site not specified (principal); L76.34 Postprocedural seroma of skin and subcutaneous tissue following other procedure; Z20.822 Contact with and (suspected) exposure to COVID-19; Z79.1 Long term (current) use of non-steroidal anti-inflammatories (NSAID); Z79.899 Other long term (current) drug therapy
CPT/HCPCS: 36415; 74177; 76830; 76856; 80053; 81001; 81025; 83605; 85025; 85027; 87040; 87086; 87088; 87186; 87635; 99218; 99284; J1885; J2543; Q9967

== ENCOUNTER 2023-10-20 23:00 | Emergency (ER) | payer OTHER, SELFPAY ==
[2023-10-20 23:02] VITALS: BP 116/70; PULSE 90; RESP 17; TEMP 36.6; O2SAT 98; BMI 27.6
--- OUTSIDE RECORDS SUMMARY | 2023-10-20 23:41 | XMS_ITS | Continuity of Care Document ---
Author Name Unknown Organization [facility] ter Address [address] [place] [id number]- Care Team Providers Care Foiling Machine Operator Name Role Phone Not on Staff, PCP Primary Care Physician Unavail able [place] [facility] [place] Date(s[place] 03/02/20 - 03/02/[address] [address]- [facility] Encounter Diagnosis Acute viral pharyngitis(Final) - 03/02/20 Discharge Disposition: A-D/C Home Attending Physician: Rachael Thurston MD Admitting Physician: Rachael Thurston MD Referring Physician: Not on Staff, Referring MD Allergies, Adverse Reactions, Alerts Substance Reaction Severity Status NKA Active Results Orders for Microbiology Reports Name Date Group A Strep Screen and Culture 03/02/20 Microbiology Reports TEST:Group A Strep Screen and Culture STATUS:Unauthenticated BODY SITE: SOURCE:THROAT COLLECTED DATE/TIME:03/02/20 1:11 PM Group A Strep Screen and Culture SPECIMEN DESCRIPTION : THROAT SWAB SPECIAL REQUESTS : NONE DIRECT EXAM : RAPID GROUP A RESULT IS NEGATIVE, REFER TO CULTURE RESULT. REPORT STATUS : PRELIMINARY REPORT Vital Signs Most recent to oldest [Reference Range]: 1 2 3 Oxygen Saturation [94-100 %] 99 % (03/02/20 4:12 PM) 100 % (03/02/20 10:33 AM) 100 % (03/02/20 10:01 AM) Pulse Rate [55-90 bpm] 64 bpm (03/02/20 4:12 PM) 87 bpm (03/02/20 10:33 AM) 96 bpm *H* (03/02/20 10:01 AM) Blood Pressure [90-138/55-84 mm Hg] 114/68mm Hg (03/02/20 4:12 PM) 115/78mm Hg (03/02/20 10:33 AM) Respiratory Rate [16-30 br/min] 16 br/min (03/02/20 4:12 PM) 16 br/min (03/02/20 10:33 AM) Temperature [96.8-100.4 DegF] 98.6 DegF (03/02/20 4:12 PM) 98.5 DegF (03/02/20 10:33 AM) Mode of Delivery (Oxygen) Room air (03/02/20 4:12 PM) Room air (03/02/20 10:33 AM) Blood pressure sites Arm, right (03/02/20 4:12 PM) Arm, left (03/02/20 10:33 AM) Temperature Route Oral (03/02/20 4:12 PM) Oral (03/02/20 10:33 AM)
--- OUTSIDE RECORDS SUMMARY | 2023-10-20 23:41 | XMS_ITS | Continuity of Care Document ---
Author Name Unknown Organization [facility] ter Address [address] [place] [id number] Care Team Providers Care Heat Engineering Teacher Name Role Phone Not on Staff, PCP Primary Care Physician Unavail able [place] [facility] [place] 11/[place]/[address] [address]- [facility] Encounter Diagnosis Urinary tract infection(Final) - 11/19/19 Discharge Disposition: A-D/C Home Attending Physician: Kandi Gonzalez DO Admitting Physician: Kandi Gonzalez DO Referring Physician: Not on Staff, Referring MD Allergies, Adverse Reactions, Alerts Substance Reaction Severity Status NKA Active Medications Keflex monohydrate 500 mg oral capsule 1 capsule = 500 mg, By Mouth, 4 times a day, for 7 days, # 28 capsule, 0 Refills, Acute 11/26/19 9:47:00 EDT, 11/19/19 9:47:00 EST, Capsule, [id number], 71.5, kg, 02/19/19 13:35:00 EDT, Dry Weight Start Date: 11/19/19 Stop Date: 11/26/19 Status: Ordered metroNIDAZOLE 500 mg oral tablet 1 tablet = 500 mg, By Mouth, Every 12 hours, for 7 days, # 14 tablet, 0 Refills, Acute 11/26/19 9:47:00 EDT, 11/19/19 9:47:00 EST, Tablet, [id number], 71.5, kg, 02/19/19 13:35:00 EDT, Dry Weight Start Date: 11/19/19 Stop Date: 11/26/19 Status: Ordered Results Orders for Microbiology Reports Name Date Wet Prep 11/19/19 Urine Culture (URINE CULTURE) 11/19/19 Microbiology Reports TEST:Wet Prep STATUS:Auth (Verified) BODY SITE: SOURCE:VAGINA COLLECTED DATE/TIME:11/19/19 9:02 AM Wet Prep SPECIMEN DESCRIPTION : VAGINAL SPECIMEN SPECIAL REQUESTS : NONE DIRECT EXAM : 2+ CLUE CELLS 1+ WHITE BLOOD CELLS NO YEAST OBSERVED NO TRICHOMONAS OBSERVED REPORT STATUS : FINAL 11/19/2019 TEST:Urine Culture STATUS:Unauthenticated BODY SITE: SOURCE:URINE COLLECTED DATE/TIME:11/19/19 8:01 AM Urine Culture SPECIMEN DESCRIPTION : URINE CLEAN CATCH/MIDSTREAM SPECIAL REQUESTS : NONE Reflexed from [id number] REPORT STATUS : PRELIMINARY REPORT Vital Signs Most recent to oldest [Reference Range]: 1 2 Oxygen Saturation [94-100 %] 100 % (11/19/19 7:31 AM) 100 % (11/19/19 7:28 AM) Pulse Rate [55-90 bpm] 65 bpm (11/19/19 7:31 AM) 80 bpm (11/19/19 7:28 AM) Blood Pressure [90-138/55-84 mm Hg] 114/ 67mm Hg (11/19/19 7:31 AM) Respiratory Rate [16-30 br/min] 20 br/mi n (11/19/19 7:31 AM) Temperature [96.8-100.4 DegF] 97.8 DegF (11/19/19 7:31 AM) Mode of Delivery (Oxygen) Room air (11/19/19 7:31 AM) Room air (11/19/19 7:28 AM) Temperature Route Oral (11/19/19 7:31 AM) Weight Obtained Via Infant scale (11/19/19 7:31 AM) Dry Weight Obtained Via Patient/family s tated (11/19/19 7:31 AM)
[2023-10-20] MEDS: Phenazopyridine HCL 200 MG TABLET PO (23:57)
[2023-10-20] MEDS: cefuroxime axetiL 250 MG TABLET PO (23:57)
--- NOTE | 2023-10-20 23:57 | ED_ITS ---
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 feels like a UTI MD elicited complaint: dysuria and UTI Pertinent past history: recurrent UTIs Onset (ago): day(s) (1) Location of symptoms: suprapubic Severity: moderate Quality of pain: cramping Consistency: intermittent Vaginal discharge: none Vaginal bleeding: none Urinary symptoms: Dysuria, Urgency and Frequency Exacerbating factors: urination Relieving factors: none Associated symptoms: abdominal pain Treatment prior to arrival: none Related Data Home Medications Medication Instructions Recorded Confirmed acetaminophen 325 mg tablet 650 mg PO Q4H PRN Pain 09/14/21 09/14/21 ascorbic acid (vitamin C) 500 mg 500 mg PO DAILY 09/14/21 09/14/21 tablet (Vitamin C) ibuprofen 200 mg tablet (Advil) 400 mg PO Q6H PRN Pain 09/14/21 09/14/21 Previous Rx's Medication Instructions Recorded ciprofloxacin HCl 250 mg tablet 250 mg PO Q12H 3 days #6 tabs 09/14/21 cefuroxime axetil 250 mg tablet 250 mg PO BID 7 days #14 tabs 10/21/23 Allergies Allergy/AdvReac Type Severity Reaction Status Date / Time No Known Allergies Allergy Verified 10/12/20 11:50 Review of Systems Review of Systems: Constitutional : No Fever, No Chills, No Fatigue ENT/Mouth : No sore throat, No Rhinorrhea Eyes: No Eye Pain, No Swelling, No Redness Cardiovascular : No Chest Pain, No SOB, No Dyspnea on Exertion Respiratory : No Cough, No Sputum Gastrointestinal : No Nausea, No Vomiting, No Diarrhea, pos abdominal Pain Genitourinary : pos Dysuria, pos Urinary Frequency, No Hematuria, Musculoskeletal : No joint pain, No Myalgias, No Joint Swelling Skin : No Skin Lesions, No rash Neuro : No Weakness, No Numbness, No Dizziness, no Headache Psych : No Anxiety/Panic, No Depression All other systems reviewed and are negative PMFSH Past Medical History Attestation statement: The following information was validated with the patient. Source: old records reviewed Medical History Right lower quadrant pain No known health problems Surgical History History of breast augmentation H/O abdominoplasty Social History Social History Household Members: Family Housing: Apartment Do you presently have visiting nurse or other home services: No Patient Tobacco Use Status: Never used Tobacco Advance Directives: No Advance Directives Information Provided: No service: No Current occupational status: employed Physical Exam Vital Signs: Vital Signs: Last Vital Signs Temp 97.9 F 10/20/23 23:02 Pulse 90 10/20/23 23:02 Resp 17 10/20/23 23:02 BP 116/70 10/20/23 23:02 Pulse Ox 98 10/20/23 23:02 O2 Del Method Room Air 10/20/23 23:02 BMI result Body Mass Index 27.6 Appearance: Alert. Oriented X3. No acute distress. Eyes: Pupils equal, round and reactive to light. ENT: Pharynx normal. Neck: Normal inspection. Neck supple. CVS: Normal heart rate and rhythm. Pulses normal. Respiratory: No respiratory distress. Breath sounds normal. Abdomen: Soft and mild suprapubic ttp no rebound or guarding Back: no CVA ttp Skin: Skin warm and dry. Normal skin color. Normal skin turgor. Extremities: No lower extremity edema. No calf ttp Neuro: Oriented X 3. No motor deficit. No sensory deficit. Medications Administered Discontinued Medications Generic Name Dose Route Start Last Admin Trade Name Freq PRN Reason Stop Dose Admin Cefuroxime Axetil 250 mg 10/20/23 23:43 10/20/23 23:57 Cefuroxime Axetil 250 Mg Tablet PO 10/20/23 23:44 250 mg ONCE ONE Administration Phenazopyridine HCl 200 mg 10/20/23 23:42 10/20/23 23:57 Phenazopyridine Hcl 200 Mg Tablet PO 10/20/23 23:43 200 mg ONCE ONE Administration Medical Decision Making Medical Decision Making MDM Narrative: 33 yo female with urinary symptoms but no flank pain no vomiting, no fevers at this time appears to have cysitis without signs of systemic toxicity given prior cultures will start on ceftin. doubt stone has no flank pain Differential Diagnosis Differential Diagnoses: The differential diagnosis associated with the presentation includes cystitis, UTI Admission/Observation Consideration of admission/observation: Escalation of care including admission/observation considered VS stable, tolerating PO can be DC home Lab Data MDM Lab Attestation statement: I reviewed the patient's lab results. External Record Review External record reviewed: Prior outpatient labs Prescription Management I considered prescription management with: Antibiotic Discharge Plan Discharge Clinical Impression: UTI (urinary tract infection) Qualifiers: Urinary tract infection type: acute cystitis Hematuria presence: with hematuria Qualified Code(s): N30.01 - Acute cystitis with hematuria Patient Disposition: Home, Self-Care Instructions: Urinary Tract Infection in Women (ED) Additional Instructions: finish all antibiotics, return for fevers, vomiting, worsening pain, inability to urinate, or any other concerns. terminar todos los antibi?ticos, regresar si tiene fiebre, v?mitos, dolor que empeora, incapacidad para orinar o cualquier otra inquietud. Prescriptions: New cefuroxime axetil 250 mg tablet 250 mg PO BID 7 Days Qty: 14 0RF No Action ciprofloxacin HCl 250 mg tablet 250 mg PO Q12H 3 Days Qty: 6 0RF acetaminophen 325 mg Tablet 650 mg PO Q4H PRN (Reason: Pain) ascorbic acid (vitamin C) [Vitamin C] 500 mg Tablet 500 mg PO DAILY ibuprofen [Advil] 200 mg Tablet 400 mg PO Q6H PRN (Reason: Pain) Print Language: [place]
[2023-10-21 00:04] LABS: Appearance Urine Turbid; Color Urine Yellow; Glucose Urine UA Negative (Negative); Leukocyte Esterase Urine Large (3+) (Negative); Nitrite Urine Negative (Negative); PH 6.5 (5.0-9.0); Specific Gravity - Urine 1.025 (1.005-1.025); UMIC TRIGGER UACC YES; Urine Blood Moderate (2+) (Negative); Urine Ketones Negative (Negative); Urine Protein 100 (2+) mg/dL (Neg-Trace)
[2023-10-21 00:05] LABS: UPreg QC Valid YES; Urine Pregnancy NEGATIVE (NEGATIVE)
[2023-10-21 00:11] LABS: Bacteria Urine None Seen (None Seen); Hyaline Casts Urine 0-2 /LPF (0-2); RBC Urine >20 /HPF (0-2); UACC Culture Trigger YES; WBC Urine >50 /HPF (0-5)
== END 2023-10-21 00:32 | disposition home or self-care (01) ==
PROVIDERS: Emergency Provider Emergency Medicine
DX: N30.01 Acute cystitis with hematuria (principal); B96.20 Unspecified Escherichia coli [E. coli] as the cause of diseases classified elsewhere; Z87.440 Personal history of urinary (tract) infections
CPT/HCPCS: 81001; 81025; 87086; 87088; 87186; 99283; 99284

== ENCOUNTER 2023-12-08 01:20 | Emergency (ER) | payer OTHER, SELFPAY ==
[2023-12-08 01:25] VITALS: BP 123/82; PULSE 97; RESP 20; TEMP 36.6; O2SAT 98; BMI 28.1
[2023-12-08 02:06] LABS: Hematocrit 40.9 % (37.0-47.0); Hemoglobin 13.4 g/dl (12.0-16.0); Mean Corpuscular HGB Conc 32.8 g/dl (31.0-35.0); Mean Corpuscular Hemoglobin 27.1 pg (27.0-33.0); Mean Corpuscular Volume 82.6 fL (80.0-98.0); Mean Platelet Volume 11.4 fL (9.4-12.3); Platelet Count 309 X10*3/uL (160-400); Red Blood Count 4.95 X10*6/uL (4.20-5.50); Red Cell Distribution Width 12.1 % (11.0-16.0); White Blood Count 13.2 X10*3/uL (4.8-10.8)
[2023-12-08 02:21] LABS: Alanine Aminotransferase 20 U/L (0-31); Albumin Level 4.1 g/dL (3.5-5.0); Alkaline Phosphatase 73 U/L (39-117); Anion Gap 11 (12-20); Aspartate Amino Transferase 16 U/L (5-31); Bilirubin Total 0.3 mg/dL (0.0-1.0); Blood Urea Nitrogen 10 mg/dL (9-16); Calcium 9.2 mg/dL (8.4-10.2); Carbon Dioxide 26 mmol/L (22-29); Chloride 107 mmol/L (96-108); Creatinine Clr Calc Pharmacy 93.8; Estimated Glomerular Filt Rate > 60; Glucose Random 126 mg/dL (60-115); Potassium 4.4 mmol/L (3.3-5.1); Sodium 140 mmol/L (135-145); Total Protein 7.4 g/dL (6.5-8.0)
[2023-12-08 03:41] VITALS: BP 109/63; PULSE 70; RESP 16; TEMP 37.3; O2SAT 100
--- NOTE | 2023-12-08 03:41 | MHC.EDTECH ---
Took over care of patient at this time,hourly rounds and vitals completed,urine sample obtained and sent to lab.
[2023-12-08 03:55] LABS: Appearance Urine Cloudy; Color Urine Dark Yellow; Glucose Urine UA Negative (Negative); Leukocyte Esterase Urine Moderate (2+) (Negative); Nitrite Urine Positive (Negative); PH 7.5 (5.0-9.0); Specific Gravity - Urine 1.015 (1.005-1.025); UMIC TRIGGER UACC YES; Urine Blood Large (3+) (Negative); Urine Ketones Negative (Negative); Urine Protein 100 (2+) mg/dL (Neg-Trace)
[2023-12-08 03:56] LABS: UPreg QC Valid YES; Urine Pregnancy NEGATIVE (NEGATIVE)
[2023-12-08 04:00] LABS: Bacteria Urine 4+ (None Seen); Hyaline Casts Urine 0-2 /LPF (0-2); RBC Urine >20 /HPF (0-2); Squamous Epithelial Cell Urine 0-2 /HPF (0-2); UACC Culture Trigger YES; WBC Urine >50 /HPF (0-5)
[2023-12-08 06:00] VITALS: BP 103/60; PULSE 84; RESP 18; TEMP 36.8; O2SAT 99
--- NOTE | 2023-12-08 06:14 | MHC.EDTECH ---
Hourly rounds and vitals completed,patient resting at this time call gill in reach
--- NOTE | 2023-12-08 06:38 | ED.FEMALEGU ---
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 provided urologic nurse) Mode of arrival: ambulatory Limitations: language barrier (all interactions I had with this patient were done via an [facility] provided urologic nurse) History of Present Illness HPI Narrative: Patient is a 33 year old assigned female at with no reported medical history presenting to the emergency department today with right lower quadrant and right flank pain. Patient states that this feels similar to when she had a UTI. Patient denies any dizziness, lightheadedness, nausea, vomiting, fever, chills, blurry vision, double vision, loss of vision, chest pain, difficulty breathing, shortness of breath, back pain, night sweats, pain with urination, increased urinary frequency, increased urinary urgency, blood in her urine or stool, syncope or a near syncopal episode, recent trauma or falls, bowel incontinence, bladder incontinence, bowel retention, bladder retention, or any other complaints at this time. Related Data Home Medications Medication Instructions Recorded Confirmed acetaminophen 325 mg tablet 650 mg PO Q4H PRN Pain 09/14/21 09/14/21 ascorbic acid (vitamin C) 500 mg 500 mg PO DAILY 09/14/21 09/14/21 tablet (Vitamin C) ibuprofen 200 mg tablet (Advil) 400 mg PO Q6H PRN Pain 09/14/21 09/14/21 Previous Rx's Medication Instructions Recorded ciprofloxacin HCl 250 mg tablet 250 mg PO Q12H 3 days #6 tabs 09/14/21 cefuroxime axetil 250 mg tablet 250 mg PO BID 7 days #14 tabs 10/21/23 cefuroxime axetil 250 mg tablet 250 mg PO BID 7 days #14 tabs 12/08/23 Allergies Allergy/AdvReac Type Severity Reaction Status Date / Time No Known Allergies Allergy Verified 12/08/23 01:25 Review of Systems Constitutional: Constitutional: Reports no additional constitutional complaints, Denies chills, Denies fever(s) and Denies night sweats Eyes: Eyes: Reports no additional eye complaints, Denies blurry vision, Denies change in vision, Denies diplopia, Denies eye discharge, Denies loss of vision and Denies eye pain ENT: Denies dizziness Cardiovascular: Cardiovascular: Reports no additional cardiovascular complaints, Denies chest pain, Denies lightheadedness, Denies Loss of Consciousness and Denies dyspnea Respiratory: Respiratory: Reports no additional respiratory complaints and Denies dyspnea Gastrointestinal: Gastrointestinal: Reports no additional gastrointestinal complaints, Reports abdominal pain, Denies melena, Denies hematochezia, Denies change in bowel habits and Denies change in stool character Genitourinary: Genitourinary: Denies hematuria, Denies urinary frequency, Denies dysuria, Reports flank pain, Denies urinary incontinence, Denies urinary hesitancy and Denies urinary urgency Musculoskeletal: Musculoskeletal: Reports no additional musculoskeletal complaints, Denies numbness and Denies tingling Neurologic: Denies dizziness, Denies loss of vision, Denies numbness and Denies tingling Psychiatric: Psychiatric: Reports no additional psychiatric complaints Endocrine: Endocrine: Reports no additional endocrine complaints Hematologic/Lymphatic: Hematologic/Lymphatic: Reports no additional hematologic/lymphatic complaints Allergic/Immunologic: Allergic/Immunologic: Reports no additional allergic/immunologic complaints PMFSH Past Medical History Attestation statement: The following information was validated with the patient. Source: old records reviewed and nursing notes reviewed Medical History Right lower quadrant pain No known health problems Surgical History History of breast augmentation H/O abdominoplasty Social History Social History Household Members: Family Housing: Apartment Do you presently have visiting nurse or other home services: No Patient Tobacco Use Status: Never used Tobacco Advance Directives: No Advance Directives Information Provided: Yes service: No Current occupational status: employed Physical Exam Vital Signs: Vital Signs: Last Vital Signs Temp 98.3 F 12/08/23 07:15 Pulse 84 12/08/23 07:15 Resp 18 12/08/23 07:15 BP 103/60 12/08/23 07:15 Pulse Ox 99 12/08/23 07:15 O2 Del Method Room Air 12/08/23 07:15 BMI result Body Mass Index 28.1 Const: General: cooperative, no acute distress, alert and awake Nutritional Appearance: well nourished Orientation/consciousness: patient oriented x3 Limitations: no limitations HEENT: Head: Yes normal to inspection and Yes atraumatic Ears: hearing grossly normal bilaterally and external ears normal General nose exam: Normal external nose present, no nasal discharge noted and no epistaxis Face and sinus: Yes normal facial exam, No abrasion and No laceration Mouth: Normal oral and palatal mucosa present, no drooling and no muffled voice Eyes: General: appearance normal, both eyes and all related structures Periorbital: periorbital findings normal Eyelids: Yes eyelids normal Conjunctivae: conjunctivae normal Pupils: Equal, round and reactive pupils present EOM: EOMs intact bilaterally Neck: Neck: Yes normal visual inspection, Yes full ROM and Yes no lymphadenopathy Chest: Chest palpation & inspection: normal inspection of the chest Resp: Effort & Inspection: normal respiratory effort and able to speak in complete sentences GI: Inspection: Yes normal to inspection Palpation (GI): Soft to palpation, not firm, nontender and no guarding Neuro: General: patient oriented x3 and moves all extremities Cranial nerves: Yes Equal, round and reactive pupils present Cognition (Neuro): normal cognition Motor exam (neuro): 5/5 motor strength present throughout Sensory Exam: Normal double simultaneous stimulation for sensation Coordination: [id number] test normal Extrem: General: Yes normal to inspection, Yes full ROM and Yes capillary refill normal Psych: Appearance: grossly normal Mental Status: mental status grossly normal Affect: normal affect Attitude: cooperative Thought process: Normal thought process present Thought content: Normal thought content present Insight: Good insight present (Psych) Medical Decision Making Medical Decision Making MDM Narrative: Patient is a 33 year old assigned female at with no reported medical history presenting to the emergency department today with abdominal pain, flank pain, and concern for a UTI. Patient's physical exam was unremarkable. Patient's blood work was unremarkable. Patient's urine showed an acute infection. I explained my physical exam findings as well as all test results to the patient. I answered all questions asked by the patient. I stressed the importance of the patient taking her medication as prescribed. I stressed the importance of the patient following up with her primary care provider. I stressed the importance of the patient returning to the emergency department immediately if her symptoms were to worsen or if she were to develop any dizziness, shortness of breath, difficulty breathing, chest pain, blurry vision, loss of vision, nausea, vomiting, abdominal pain, fever, chills, back pain, or any other complaints. Patient verbalized agreement and understanding with this treatment plan and discharge. Differential Diagnosis Differential Diagnoses: The differential diagnosis associated with the presentation includes UTI Abdomianl pain Flank pain Admission/Observation Consideration of admission/observation: Escalation of care including admission/observation considered Patient would have been admitted to the hospital had her work up had any findings where hospital admission was appropriate and her clinical presentation warranted hospital admission. Lab Data [facility] Lab Attestation statement: I reviewed the patient's lab results. My interpretation of these results are in the [facility] Rationale portion of this note. 12/08/23 02:00 12/08/23 02:00 Labs: Lab Results 12/08/23 12/08/23 Range/Units 02:00 03:40 WBC 13.2 H (4.8-10.8) X10*3/uL RBC 4.95 (4.20-5.50) X10*6/uL Hgb 13.4 (12.0-16.0) g/dl Hct 40.9 (37.0-47.0) % MCV 82.6 (80.0-98.0) fL MCH 27.1 (27.0-33.0) pg MCHC 32.8 (31.0-35.0) g/dl RDW 12.1 (11.0-16.0) % Plt Count 309 D (160-400) X10*3/uL MPV 11.4 (9.4-12.3) fL Absolute Nucleated RBC 0.000 (0.0-0.012) X10*3/uL Nucleated RBC % (auto) 0.0 (0.0-0.2) /100WBC Sodium 140 (135-145) mmol/L Potassium 4.4 (3.3-5.1) mmol/L Chloride 107 (96-108) mmol/L Carbon Dioxide 26 (22-29) mmol/L Anion Gap 11 L (12-20) BUN 10 (9-16) mg/dL Creatinine 0.78 (0.5-1.4) mg/dL Estim Creat Clear Calc 93.8 Estimated GFR > 60 Random Glucose 126 H (60-115) mg/dL Calcium 9.2 (8.4-10.2) mg/dL Total Bilirubin 0.3 (0.0-1.0) mg/dL AST 16 (5-31) U/L ALT 20 (0-31) U/L Alkaline Phosphatase 73 (39-117) U/L Total Protein 7.4 (6.5-8.0) g/dL Albumin 4.1 (3.5-5.0) g/dL Urine Color Dark Yellow Urine Appearance Cloudy Urine pH 7.5 (5.0-9.0) Ur Specific [place] 1.015 (1.005-1.025) Urine Protein 100 (2+) H (Neg-Trace) mg/dL Urine Glucose (UA) Negative (Negative) mg/dL Urine Ketones Negative (Negative) mg/dL Urine Blood Large (3+) H (Negative) Urine Nitrite Positive H (Negative) Ur Leukocyte Esterase Moderate (2+) H (Negative) Urine RBC >20 H (0-2) /HPF Urine WBC >50 H (0-5) /HPF Ur Squamous Epith Cells 0-2 (0-2) /HPF Urine Bacteria 4+ (None Seen) Hyaline Casts 0-2 (0-2) /LPF Urine Test NEGATIVE (NEGATIVE) Prescription Management I considered prescription management with: Antibiotic (patient prescribed an antibiotic for UTI) Discharge Plan Discharge Clinical Impression: UTI (urinary tract infection) Patient Disposition: Home, Self-Care Instructions: Urinary Tract Infection in Women (DC) Additional Instructions: Take your antibiotics as prescribed, to completion. Follow up with your primary care provider. Return to the emergency department immediately if your symptoms worsen or if you develop any dizziness, shortness of breath, difficulty breathing, chest pain, blurry vision, loss of vision, nausea, vomiting, abdominal pain, fever, chills, back pain, or any other complaints. Prescriptions: New cefuroxime axetil 250 mg tablet 250 mg PO BID 7 Days Qty: 14 0RF No Action ciprofloxacin HCl 250 mg tablet 250 mg PO Q12H 3 Days Qty: 6 0RF acetaminophen 325 mg Tablet 650 mg PO Q4H PRN (Reason: Pain) ascorbic acid (vitamin C) [Vitamin C] 500 mg Tablet 500 mg PO DAILY ibuprofen [Advil] 200 mg Tablet 400 mg PO Q6H PRN (Reason: Pain) cefuroxime axetil 250 mg tablet 250 mg PO BID 7 Days Qty: 14 0RF Referrals: Gerard,Dante B III, MD [Primary Care Provider] - Stand Alone Forms: Work/School Release Interventions: ED Discharge Assessment Last Done: 12/08/23 07:15 Discharge Date/Time: 12/08/23 07:33 Print Language: Turkmen
[2023-12-08 07:15] VITALS: BP 103/60; PULSE 84; RESP 18; TEMP 36.8; O2SAT 99
== END 2023-12-08 07:33 | disposition home or self-care (01) ==
PROVIDERS: Emergency Provider Emergency Medicine; PCP Internal Medicine
DX: N39.0 Urinary tract infection, site not specified (principal); R10.31 Right lower quadrant pain; Z79.899 Other long term (current) drug therapy
CPT/HCPCS: 36415; 80053; 81001; 81025; 85027; 87086; 87088; 87186; 99283; 99284